=== PATIENT | female | born 1965 | race Caucasian/White ===

== ENCOUNTER → 2017-02-22 | Day surgery (SDC) | payer OTHER ==
[~2017-02-22] VITALS: Ht 154.9 cm; Wt 54.4 kg
[~2017-02-22] MED LIST: 0.9% Sodium Chloride 1,000 ML IV SCH; ASCO-294 PO; BIFI1CAP PO; CHOL1LIQ MC; MULT-1018 PO; Sodium Chloride LOK Flush 10 mL Syringe IV PRN; fentaNYL-PF 50 mCg/mL 2 mL Inj IVPUSH PRN
[2017-02-22 07:53] VITALS: BP 119/67; PULSE 77; RESP 16; O2SAT 100
[2017-02-22 09:07] VITALS: BP 96/49; PULSE 75; RESP 16; O2SAT 97
[2017-02-22 09:20] VITALS: BP 96/45; PULSE 71; RESP 16; O2SAT 98
[2017-02-22 09:28] VITALS: BP 103/56; RESP 16; O2SAT 98
--- NOTE | 2017-02-22 09:30 | ENDO ---
[address] [address] ENDOSCOPY PROCEDURE PATIENT: MARK KERR : 1965 MR#: [id number] ADMIT: 02/22/2017 JOB ID: [id number] DATE: 02/22/2017 TYPE OF PROCEDURE: Colonoscopy INDICATIONS: Screening. Patient's ASA classification is 1. Mallampati score is 2. MEDICATIONS: 1. Versed 3 mg. 2. Fentanyl 100 mcg. INSTRUMENT USED: PCF-H180AL PREPARATION QUALITY: Good. PROCEDURE DETAILS: After informed consent was obtained, the patient was brought into the GI suite, where she was placed on oxygen via nasal cannula and monitored with continuous pulse oximeter, telemetry, and blood pressure monitoring. A time-out was performed and then she was placed in the left lateral decubitus position and medications were administered for sedation. A digital rectal exam was performed, which was unremarkable. The colonoscope was then inserted into the rectum and advanced under direct visualization to the cecum, which was identified by the presence of the ileocecal valve and appendiceal orifice. Once the cecum was reached, the colonoscope was withdrawn back into the rectum and mucosa and lumen were examined. In the rectum, retroflexion was performed. Following retroflexion, remaining air in the rectum was suctioned, and procedure was completed. FINDINGS: In the descending colon, there was an approximately 5 mm sessile polyp that was removed with a cold snare. IMPRESSION: Descending colon polyp. RECOMMENDATIONS: Repeat colonoscopy in five years, sooner if symptoms should dictate. COMPLICATIONS: None. ESTIMATED BLOOD LOSS: Less than 5 mL.
--- NOTE | 2017-02-23 17:07 | PATH ---
SURGICAL PATHOLOGY Attending Physician:Nicole Bender CASE STATUS: Signed Out PATIENT NAME: MARK KERR PID: [id number] : 1965 DATE COLLECTED:02/22/2017 20:06 SPECIMEN: Colon, Polyp CLINICAL HISTORY: 1). DESCENDING COLON POLYP FINAL DIAGNOSIS: Descending Colon Polyp, Polypectomy: Serrated polyp, favor sessile serrated adenoma. ICD10: D12.4 GROSS DESCRIPTION: The specimen is received in one formalin filled container labeled with the patient's name, sublabeled "descending colon polyp" and consists of a 0.3 x 0.2 x 0.2 CM portion of tissue which is entirely submitted in one cassette. 02/22/2017DC ICD-9 CODES: CPT CODES: 1: 39062 Electronically Signed Out Carlos Neville MD, Ph.D. [facility] Pathology [facility] [address], [place] [address] Technical component performed at [facility], [facility] [address], [place], [address]
== END | disposition home or self-care (01) ==
LOC: END 01:16
PROVIDERS: ATTEND Internal Medicine Gastroenterology
DX: Z12.11 Encounter for screening for malignant neoplasm of colon (principal); D12.4 Benign neoplasm of descending colon
CPT/HCPCS: 45385; G0500; J2250; J3010; J7030